=== PATIENT | female | born 1955 | race Caucasian/White ===

== ENCOUNTER 2018-01-18 08:36 | Day surgery (SDC) | payer BC ==
[~2018-01-18 08:36] MED LIST: Lactated Ringers 1,000 ML IV SCH
[2018-01-18] MEDS ORDERED: Midazolam 1 MG/ML 2 ML SDV ONE (09:35)
[2018-01-18] MEDS ORDERED: Propofol 200 MG/20 ML SDV ONE (09:39)
[2018-01-18] MEDS ORDERED: Glycopyrrolate 0.2 MG/ML SDV ONE (09:41)
[2018-01-18] MEDS ORDERED: Ondansetron 4 MG/2 ML SDV ONE (09:41)
[2018-01-18] MEDS ORDERED: Benzocaine 20% Topical Spray UD MUCMEM ONE (09:41)
[2018-01-18] MEDS ORDERED: Lidocaine 2% 5 ML SDV ONE (09:41)
--- NOTE | 2018-01-18 09:53 | PCM.PREANE ---
Preanesthetic Assessment - Procedure Proposed Procedure: EGD & Colonoscopy - Anesthesia/Transfusion/Family Hx Anesthesia History: Prior Anesthesia Reaction Other Type of Anesthesia Reaction Comment: Very sick with general anesthesia in past, my mother also does same Family History of Anesthesia Reaction: No Transfusion History: No Prior Transfusion(s) Intubation History: Unknown - Review of Systems General: Other (hx nausea with all full anesthetics) Pulmonary: No Symptoms Cardiovascular: Other (HTN) Gastrointestinal: Other (IBS/hx polyp/GERD/chronic gastritiis) Neurological: No Symptoms Other: Reports: None - Physical Assessment NPO Status Date: 01/17/18 NPO Status Time: 23:00 O2 Sat by Pulse Oximetry: 96 Respiratory Rate: 16 Vital Signs: Last Vital Signs Temp 98.1 F 01/18/18 09:38 Pulse 68 01/18/18 09:38 Resp 16 01/18/18 09:38 BP 137/75 01/18/18 09:38 Pulse Ox 96 01/18/18 09:38 Height: 5 ft 4 in Weight: 141 lb ASA Class: 2 Mental Status: Alert & Oriented x3 Airway Class: Mallampati = 1 Dentition: Reports: Normal Dentition Thyro-Mental Finger Breadths: 3 Mouth Opening Finger Breadths: 3 ROM/Head Extension: Full Lungs: Clear to Auscultation, Normal Respiratory Effort Cardiovascular: Regular Rate, Regular Rhythm, No Murmurs - Allergies Allergies/Adverse Reactions: Allergies Allergy/AdvReac Type Severity Reaction Status Date / Time codeine Allergy Vomiting Verified 01/15/18 07:13 meperidine HCl [From Demerol] Allergy Vomiting Verified 01/15/18 07:13 oxycodone HCl [From Percocet] Allergy Vomiting Verified 01/15/18 07:13 - Blood Blood Available: No Product(s) Available: None - Anesthesia Plan Pre-Op Medication Ordered: None - Acknowledgements Anesthesia Type Planned: MAC Pt an Appropriate Candidate for the Planned Anesthesia: Yes Alternatives and Risks of Anesthesia Discussed w Pt/Guardian: Yes Pt/Guardian Understands and Agrees with Anesthesia Plan: Yes PreAnesthesia Questionnaire HEENT History: Reports: Other (See Below) Other HEENT History: wears glasses Cardiovascular History: Reports: High Cholesterol, Hypertension Respiratory History: Reports: None Gastrointestinal History: Reports: Gastritis, GERD, Irritable Bowel Syndrome Genitourinary History: Reports: None 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: Musculoskeletal History: Reports: Arthritis Psychiatric History: Reports: None Endocrine/Metabolic History: Reports: None Hematologic History: Reports: None Immunologic History: Reports: None Oncologic (Cancer) History: Reports: None Dermatologic History: - Past Surgical History Head Surgeries/Procedures: Reports: None GI Surgical History: Reports: Cholecystectomy, Colonoscopy, EGD Female Surgical History: Reports: Hysterectomy, Other (See Below) Other Female Surgeries/Procedures: TVT Neurological Surgical History: Reports: Laminectomy Other Neurological Surgeries/Procedures: laminectomy x2 Musculoskeletal Surgical History: Reports: Arthroscopic Knee Dermatological Surgical History: Reports: Plastic Surgical Reconstruction/Repair - SUBSTANCE USE Smoking Status *Q: Former Smoker Recreational Drug Use History: No - HOME MEDS Home Medications: Home Meds Aspirin [[place] Aspirin] 81 mg PO DAILY 09/20/13 [History] Carvedilol 12.5 mg PO BID 10/27/14 [History] Fish Oil/Fidelity-3 Fatty Acids [Fish Oil 1,000 MG] 3 tab PO DAILY 10/27/14 [ History] Lovastatin 1 tab PO DAILY 10/27/14 [History] Lutein/Min/Vit C/Vit E Acetate [Ocuvite Lutein] 1 tab PO DAILY 10/27/14 [History ] Omeprazole Magnesium [Prilosec Otc] 1 tab PO DAILY 10/27/14 [History] Acyclovir [Zovirax 5% Oint] 1 applic TOP ASDIRECTED PRN 01/15/18 [History] Ascorbic Acid [Vitamin C] 1,000 mg PO DAILY 01/15/18 [History] Cyanocobalamin (Vitamin B12) [Vitamin B12] 1,000 mcg PO DAILY 01/15/18 [History] Diclofenac Sodium [Diclofenac Sodium ER] 100 mg PO ASDIRECTED PRN 01/15/18 [ History] Ondansetron [Zofran] 8 mg PO ASDIRECTED PRN 01/15/18 [History] Vitamin B6-pyridOXINE 100 mg PO DAILY 01/15/18 [History] valACYclovir HCl [Valtrex] 500 mg PO ASDIRECTED PRN 01/15/18 [History] - CURRENT (IN HOUSE) MEDS Current Meds: Current Medications Lactated Ringer's (Ringers, Lactated) 1,000 mls @ 125 mls/hr IV ASDIRECTED DAVID Last Admin: 01/18/18 09:15 Dose: 125 mls/hr Discontinued Medications Benzocaine (Hurricaine One 20%) Confirm Administered Dose 1 each MUCMEM .STK- MED ONE Stop: 01/18/18 09:42 Glycopyrrolate (Robinul) Confirm Administered Dose 0.2 mg .ROUTE .STK-MED ONE Stop: 01/18/18 09:42 Lidocaine (Xylocaine-Mpf 2%) Confirm Administered Dose 5 ml .ROUTE .STK-MED ONE Stop: 01/18/18 09:42 Midazolam HCl (Versed 1 Mg/Ml) Confirm Administered Dose 2 mg .ROUTE .STK-MED ONE Stop: 01/18/18 09:36 Ondansetron HCl (Zofran) Confirm Administered Dose 4 mg .ROUTE .STK-MED ONE Stop: 01/18/18 09:42 Propofol (Diprivan 20 Ml) Confirm Administered Dose 400 mg .ROUTE .STK-MED ONE Stop: 01/18/18 09:40
[2018-01-18] MEDS ORDERED: Sodium Chloride 0.9% 2.5 ML Syringe FLUSH PRN (11:22)
[2018-01-18] MEDS ORDERED: Sodium Chloride 0.9% 10 ML Syringe FLUSH PRN (11:22)
[2018-01-18] MEDS ORDERED: Ondansetron 4 MG/2 ML SDV IVPUSH PRN (11:22)
--- NOTE | 2018-01-18 11:27 | PCM.OPNOTE ---
- General Post-Op/Procedure Note Date of Surgery/Procedure: 01/18/18 Operative Procedure(s): Esophagogastroduodenoscopy with biopsy. Colonoscopy. Pre Op Diagnosis: Progressive gastroesophageal reflux disease. Personal history of colon polyps. Post-Op Diagnosis: Mild gastritis and esophagitis. Minimal sigmoid diverticulosis. No colonic polyps. Anesthesia Technique: MAC (ASA II) Primary Surgeon: Nico Suárez Eyelet Row Marker: Tucker Carrillo Condition: Good Free Text/Narrative:: DICTATION [id number] CPT CODE [id number]
--- NOTE | 2018-01-18 11:34 | PCM.POSTAN ---
POST ANESTHESIA ASSESSMENT - MENTAL STATUS Mental Status: Alert, Oriented - RESPIRATORY Respiratory Status: Respiratory Rate WNL - CARDIOVASCULAR CV Status: Pulse Rate WNL - GASTROINTESTINAL GI Status: No Symptoms - PAIN Pain Score: 0 - POST OP HYDRATION Hydration Status: Adequate & Stable - OBSERVATIONS Free Text/Narrative:: no anesthesia problems
--- NOTE | 2018-01-18 12:03 | PCM48HPAN ---
Post Anesthesia Note - EVALUATION WITHIN 48HRS OF ANESTHETIC Vital Signs in Normal Range: Yes Patient Participated in Evaluation: Yes Respiratory Function Stable: Yes Airway Patent: Yes Cardiovascular Function Stable: Yes Hydration Status Stable: Yes Pain Control Satisfactory: Yes Nausea and Vomiting Control Satisfactory: Yes Mental Status Recovered: Yes Resp Rate: 13 - COMMENTS/OBSERVATIONS Free Text/Narrative:: no anesthesia problems
[2018-01-18 12:47] VITALS: BP 106/62
--- NOTE | 2018-01-18 14:58 | OR ---
SURGEON: Nico Suárez M.D. DATE OF PROCEDURE: 01/18/2018 OPERATION PERFORMED: Esophagogastroduodenoscopy with biopsy. CHILD AND YOUTH PROGRAM ASSISTANT: Dr. Mcelroy, PGY2. ANESTHESIA: MAC. ASA CLASSIFICATION: II. PREOPERATIVE DIAGNOSIS: Progressive gastroesophageal reflux disease. POSTOPERATIVE DIAGNOSES: Mild gastritis, mild esophagitis. No acute ulcerations. DESCRIPTION OF PROCEDURE: The patient was taken to the endoscopy room and positioned on the endoscopy table in the left lateral decubitus position. Time-out was called for appropriate identification of the patient and procedure. The bite block was placed between the patient's teeth. The gastroscope was inserted through the bite block and advanced with minimal difficulty through the esophagus and stomach into the duodenum where examination was carried out in a retrograde fashion. The duodenum shows no acute inflammatory changes or ulcerations. The gastroscope was withdrawn to the stomach and antral biopsies were obtained to look for the presence of Helicobacter pylori. The gastroscope was then retroflexed to visualize the proximal stomach. No tumors or ulcerations were noted. No significant hiatal hernia was noted in a retrograde view. The gastroscope was then straightened and slowly withdrawn. The GE junction was well defined and shows minimal inflammatory changes and no ulcerations. The esophagus itself demonstrates good contractility. No mid or proximal lesions were identified. The vocal cords were briefly visualized as the scope was withdrawn and noted to move symmetrically. The gastroscope was then removed with the patient having tolerated the procedure well. Following colonoscopy, she was taken to recovery room in stable condition. ROHAN / KATIE /[id number]
--- NOTE | 2018-01-18 15:35 | OR ---
SURGEON: Nico Suárez M.D. DATE OF PROCEDURE: 01/18/2018 OPERATION PERFORMED: Colonoscopy. ANESTHESIA: MAC. ASA CLASSIFICATION: II. LAB ENGINEER: Dr. Mcelroy, PGY2. PREOPERATIVE DIAGNOSIS: Personal history of colon polyps. POSTOPERATIVE DIAGNOSIS: Minimal sigmoid diverticulosis. DESCRIPTION OF PROCEDURE: With the patient having completed esophagogastroduodenoscopy, she was maintained in the left lateral decubitus position. The colonoscope was inserted into the rectum and advanced with minimal difficulty to the cecum where the colonoscope was retroflexed to visualize the ascending colon from below. The colonoscope was then straightened and slowly withdrawn. The cecum, ascending colon, hepatic flexure, transverse colon, splenic flexure, descending colon, sigmoid colon showed no tumors, polyps, diverticula, or angiodysplastic changes. There was no evidence of inflammatory bowel disease. A few small scattered diverticula were noted in the sigmoid colon. The colonoscope was withdrawn to the rectum and retroflexed to visualize the anal orifice from above. Again, no tumors or polyps were seen, and there were no acute hemorrhoidal changes. The colonoscope was then straightened, the rectum aspirated, and the colonoscope removed. The patient tolerated the procedure well and was taken to recovery room in stable condition. ROHAN / KATIE /[id number]
== END 2018-01-18 12:13 | disposition home or self-care (01) ==
LOC: MW.SDS 08:36
PROVIDERS: ATTEND Surgery
DX: Z12.11 Encounter for screening for malignant neoplasm of colon (principal); K57.30 Diverticulosis of large intestine without perforation or abscess without bleeding; K21.9 Gastro-esophageal reflux disease without esophagitis; K29.70 Gastritis, unspecified, without bleeding; K20.9 Esophagitis, unspecified; K58.9 Irritable bowel syndrome, unspecified; I11.9 Hypertensive heart disease without heart failure; Z79.82 Long term (current) use of aspirin; Z79.899 Other long term (current) drug therapy; Z88.5 Allergy status to narcotic agent; Z88.6 Allergy status to analgesic agent; Z86.010 Personal history of colon polyps
CPT/HCPCS: 43239; 45378; A9270; J2250; J2405; J2704; J3490; J7120